=== PATIENT | female | born 2000 | race African-American/Black ===

== ENCOUNTER 2020-09-02 22:58 | Emergency (ER) | payer OTHER ==
[~2020-09-02] VITALS: Ht 177.8 cm; Wt 88.5 kg
[2020-09-03 00:13] VITALS: BP 129/78
== END 2020-09-03 00:20 | disposition home or self-care (01) ==
LOC: ER 22:58
DX: F41.0 Panic disorder [episodic paroxysmal anxiety] (principal); M54.9 Dorsalgia, unspecified